=== PATIENT | female | born 2000 | race African-American/Black ===

== ENCOUNTER 2021-09-27 13:12 | Emergency (ER) | payer OTHER ==
[2021-09-27] MEDS ORDERED: HYDROcodone/Acetaminophen 5/325 mg Tablet ONE (15:32)
== END 2021-09-27 16:53 | disposition home or self-care (01) ==
LOC: CSHERS 13:12
DX: S02.2XXA Fracture of nasal bones, initial encounter for closed fracture (principal); S60.221A Contusion of right hand, initial encounter; S00.12XA Contusion of left eyelid and periocular area, initial encounter; G93.89 Other specified disorders of brain; Y04.8XXA Assault by other bodily force, initial encounter
CPT/HCPCS: 70450; 70486; 72125

== ENCOUNTER 2022-06-05 20:02 | Emergency (ER) | payer OTHER ==
[2022-06-05 22:23] LABS: Pregnancy Test - Urine (BHCG) Negative (Negative); Pregu Control Background? CLEAR/WHITE (CLR/WHITE); Pregu Control Bar Appear? YES (CONTROL BAR)
[2022-06-05 22:24] LABS: Bilirubin Neg (Negative); Blood, Urine 10 (Negative); Clarity Slightly Cloudy (Clear); Glucose, Urine (Dipstick) Normal (Negative); Ketone, Urine Negative (Negative); Leukocyte 500 (Negative); Nitrite Negative (Negative); Protein, Urine (Dipstick) 30 mg/dl (Neg-Trace); Urobilinogen Normal mg/dL (Less than 2)
[2022-06-05 22:32] LABS: Bacteria/HPF 2+ HPF (None Seen); Mucous/LPF 4+ LPF (<2+); WBC/HPF 21-50 HPF (0-3)
[2022-06-05] MEDS ORDERED: cefTRIAXone\\ROCEPHIN 500 MG VIAL ONE (23:18)
[2022-06-05] MEDS ORDERED: Lidocaine 1% MPF 2 ML VIAL ONE (23:19)
[2022-06-05] MEDS ORDERED: Acetaminophen 500 MG TAB ONE (23:19)
[2022-06-06 16:57] LABS: Chlamydia by PCR Not Detected (NotDetected); GC by PCR Not Detected (NotDetected)
== END 2022-06-05 23:33 | disposition home or self-care (01) ==
LOC: CSHERS 20:02
DX: N39.0 Urinary tract infection, site not specified (principal)
CPT/HCPCS: 81003; 81015; 81025; 87077; 87086; 87186; 87480; 87491; 87510; 87591; 87660; 96372; 99284; J0696; U0003; U0005

== ENCOUNTER 2022-07-26 20:30 | Emergency (ER) | payer OTHER ==
[2022-07-26] MEDS ORDERED: Sterile Water 10 ML ONE (21:22)
[2022-07-26] MEDS ORDERED: cefTRIAXone\\ROCEPHIN 500 MG VIAL ONE (21:22)
[2022-07-26 21:43] LABS: Bilirubin Neg (Negative); Blood, Urine 10 (Negative); Clarity Clear (Clear); Glucose, Urine (Dipstick) Normal (Negative); Ketone, Urine Negative (Negative); Leukocyte 25 (Negative); Nitrite Negative (Negative); Protein, Urine (Dipstick) Negative (Neg-Trace); Specific Gravity, Urine 1.015 (1.002-1.036)
[2022-07-26 21:46] LABS: Pregnancy Test - Urine (BHCG) Negative (Negative)
[2022-07-26 21:47] LABS: Pregu Control Background? CLEAR/WHITE (CLR/WHITE); Pregu Control Bar Appear? YES (CONTROL BAR); Specific Gravity 1.015 (1.002-1.036)
[2022-07-26 22:02] LABS: Bacteria/HPF None Seen HPF (None Seen); RBC/HPF 0-3 HPF (0-3); Squamous Epithelial 0-3 HPF (0-3); WBC/HPF 0-3 HPF (0-3)
[2022-07-27 16:38] LABS: Chlamydia by PCR Not Detected (NotDetected); GC by PCR Not Detected (NotDetected)
== END 2022-07-26 21:45 | disposition home or self-care (01) ==
LOC: CSHERS 20:30
DX: N89.8 Other specified noninflammatory disorders of vagina (principal); M79.89 Other specified soft tissue disorders
CPT/HCPCS: 81003; 81015; 81025; 87480; 87491; 87510; 87591; 87660; 96372; 99283; J0696

== ENCOUNTER 2022-10-11 17:50 | Emergency (ER) | payer OTHER ==
[2022-10-11 19:03] LABS: Bilirubin Neg (Negative); Blood, Urine Negative (Negative); Clarity Clear (Clear); Glucose, Urine (Dipstick) Normal (Negative); Ketone, Urine Negative (Negative); Leukocyte 25 (Negative); Nitrite Negative (Negative); Protein, Urine (Dipstick) Negative (Neg-Trace); Specific Gravity, Urine 1.015 (1.005-1.030)
[2022-10-11 19:05] LABS: Pregnancy Test - Urine (BHCG) Negative (Negative); Pregu Control Background? CLEAR/WHITE (CLR/WHITE); Pregu Control Bar Appear? YES (CONTROL BAR); Specific Gravity 1.015 (1.002-1.036)
[2022-10-11 19:24] LABS: Bacteria/HPF None Seen HPF (None Seen); RBC/HPF 0-3 HPF (0-3); Squamous Epithelial 0-3 HPF (0-3); WBC/HPF 0-3 HPF (0-3)
== END 2022-10-11 20:24 | disposition left against medical advice (07) ==
LOC: CSHERS 17:50
DX: N89.8 Other specified noninflammatory disorders of vagina (principal)
CPT/HCPCS: 81003; 81015; 81025; 99283

== ENCOUNTER 2022-11-19 23:44 | Emergency (ER) | payer OTHER | END 2022-11-20 00:34 | LOC: CSHERS 23:44 | DX: M79.622 Pain in left upper arm (principal) ==

== ENCOUNTER 2023-11-11 11:59 | Emergency (ER) | payer MEDICAID, SELFPAY ==
[2023-11-11 13:18] LABS: SARS-CoV-2 NAA Rapid Test Not Detected (NotDetected)
== END 2023-11-11 13:40 | disposition home or self-care (01) ==
LOC: CSHERS 11:59
DX: J10.1 Influenza due to other identified influenza virus with other respiratory manifestations (principal); Z20.822 Contact with and (suspected) exposure to COVID-19
CPT/HCPCS: 99283